=== PATIENT | female | born 2000 | race Caucasian/White ===

== ENCOUNTER 2025-01-12 13:24 | Outpatient (AMB) | payer BC, SELFPAY ==
--- NOTE | 2025-01-12 13:47 | AMB.GYNCLNOT ---
Vital Signs 01/12/25 13:48 Height 1.73 m Height Method Stated Weight 73.482 kg Weight Measurement Method Standing Scale BMI 24.6 BP 135/86 H Blood Pressure Source Automatic Cuff Blood Pressure Location Left Upper Arm Position Sitting Respiration 18 Pulse 77 Pulse Source Monitor Temp 97.2 F Temp Source Oral Pulse Oximetry (%) 98 Oxygen Delivery Method Room Air Allergies/Home Meds Allergies & Medications Allergies No Known Allergies Allergy (Verified 01/15/25 08:10) Medication Reconciliation No Known Home Medications 01/12/25 [History Confirmed 01/12/25] Intake Visit Data Collection New Patient or Established: New Patient (never been to [facility]) Reason for Visit:: HOSPITAL FOLLOW UP Seen by Clinical Staff ONLY (RN/MA): No Licensed Nuclear Control Room Operator Required: No Do You Feel Safe at Home: Yes Authorities Contacted: N/A PCP or OBGYN visit in last 3 months: Yes Hx Now: Yes Are you currently on any form of Control: No Last menstrual period: 11/28/24 Pain Present Currently: No Pain Scale Used: Genao-Ga/Numerical Pain scale:: 0 Smoking Status Smoking Status: Never smoker 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 She was induced at 40-6/7 weeks. Her daughter is 2 years old. Patient states when she got to complete she only pushed 3 times. This was in [place]. Other Relevant History: Patient has no chronic medical problems. Just -induced hypertension with last . 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 Questionnaires Covid-19 Vaccine Questionnaire Has patient been vacinated for Covid-19 Have you been vacinated for Covid-19: Yes PHQ-9 PHQ-2 Over the last 2 weeks, how often have you been bothered by any of the following problems? 1. Little interest or pleasure in doing things: not at all 2. Feeling down, depressed, or hopeless: not at all Total score: 0 PHQ-9 3. Trouble falling or staying asleep, or sleeping too much: Not at all 4. Feeling tired or having little energy: Not at all 5. Poor appetite or overeating: Not at all 6. Feeling bad about yourself - or that you are a failure or have let yourself or your family down: Not at all 7. Trouble concentrating on things, such as reading the newspaper or watching television: Not at all 8. Moving or speaking so slowly that other people could have noticed? - Or the opposite - being so fidgety or restless that you have been moving around a lot more than usual: not at all 9. Thoughts that you would be better off or of hurting yourself in some way: Not at all Total score: 0 If you checked off any problems, how difficult have these problems made it for you to do your work, take care of things at home, or get along with other people?: not difficult at all Source: Developed by Drs. Paul Renee, Meenaksih Breen, Efren Tang and colleagues, with an educational alejandrina from [employer]. 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 She is unsure about how she is. The first day of her last menstrual period was November 28. This was heavy for her. She went to the ER with a positive test at [facility] on 01/09/2025 but was already bleeding. She did bring some limited notes from the [facility] emergency room. At the time, her quantitative hCG was 1191. An ultrasound revealed no intrauterine . Her hemoglobin was 12.3 and her blood type is A-. The patient was not given RhoGAM. She was told to follow-up with me. She is here 3 days later for follow-up. The patient states she has continued to bleed. She states they diagnosed her with a UTI and she is on Keflex. The patient has a 2-year-old at home. Review of Systems Review of Systems Narrative Review of Systems: Patient has some nausea, vomiting, bloating, indigestion. She also reports abnormal bleeding and cramping. She has some breast pain. Although symptoms are consistent with an early . She is also reporting occasional hot flashes. No fevers. Exam Narrative Physical exam: Pelvic exam deferred as patient is actively be bleeding. General Limitations: no limitations General Appearance: alert, in no apparent distress, comfortable, cooperative and well groomed Neck Neck exam: Present normal inspection, full ROM and trachea midline Chest Chest inspection: Present normal inspection and symmetric chest wall rise Resp Respiratory exam: Present normal lung sounds bilaterally Card Cardiovascular exam: Present regular rate, normal rhythm and normal heart sounds Abdominal Abdominal exam: Present soft and normal bowel sounds Extremities Extremities exam: Present normal inspection and full ROM Psych Psychiatric exam: Present normal affect and normal mood Skin Skin exam: Present warm, dry, intact and normal color Results Objective Laboratory: Repeat quantitative hCG performed today at [facility] reveals a quant down to 94. Office Procedures OB Clinic LOC & Office Proc's Nursing/Assessment Patient Status: Initial/New Patient OB Clinic Nursing Assessment: Medication Reconciliation, Update PMH in EMR and Vital Signs OB Clinic Coordination of Care: Education Complex Pt/Fam, Lab and Imaging orders, Results/Orders obtained and Staff clarify orders New Patient Charge New Patient Point Assignment: 1079 New Patient Point Charge: PROCESS TREATER Level 3 ([id number]) Injection/Vaccine Admin Admin 1st Vaccine: Yes Office Meds Rhophylac 1,500 unit (300 mcg)/2 mL injection syringe Performing Provider: Leona Osman (OB Clinic)MD Performing Location: [facility] LAW OFFICE ASSISTANT Clinic Administered by: Tiki Aguilar MA on 01/12/25 15:59 Dose Route Admin Location Dispensed Lot Number Expiration Date [facility] Glaze Supervisor 1,500 unit IM RIGHT GLUTE 2 mL [id number] 12/19/26 19763-088-90 [employer] Assessment & Plan Diagnosis / Problem List (1) Rh negative status during : Status: Acute Qualifiers: Trimester: first trimester Qualified Code(s): O26.891 - Other specified related conditions, first trimester; Z67.91 - Unspecified blood type, Rh negative Assessment and Plan: Patient was given RhoGAM today. (2) Incomplete : Status: Acute Assessment and Plan: Patient is up most likely almost done miscarrying. Her quant was 76525 days ago, now it is down to 94. Patient was told to refrain from intercourse tampons swimming or douching until she stops bleeding. At least 2 weeks. The patient will follow-up then for a test. She does state her last Pap was in December 2022. I did tell her to wait 3 normal cycles before she attempting again. The patient does agree with this. (3) Family history of cancer: Status: Acute Assessment and Plan: Patient has a family history of breast cancer. This needs to be addressed at her post miscarriage visit. I am unsure which family member has breast cancer and if they were first-degree relative, if they were checked for the BRCA1 BRCA2 gene. We will discuss this further at her next follow-up appointment.
[2025-01-12 13:48] VITALS: BP 135/86; PULSE 77; RESP 18; TEMP 36.2; O2SAT 98; BMI 24.6
== END 2025-01-12 14:31 | disposition home or self-care (01) ==
LOC: HODSOBC 13:24
PROVIDERS: Supervising Provider Obstetrics & Gynecology; Visit Provider Obstetrics & Gynecology
DX: O03.4 Incomplete spontaneous abortion without complication (principal); O26.891 Other specified pregnancy related conditions, first trimester; Z67.11 Type A blood, Rh negative; Z3A.00 Weeks of gestation of pregnancy not specified; Z80.3 Family history of malignant neoplasm of breast
CPT/HCPCS: 90471; 96372; 99203; J3490; G0463; J2791

== ENCOUNTER → 2025-01-12 | Outpatient (CLI) | payer BC, SELFPAY ==
[2025-01-12 16:24] LABS: Beta HCG,Quantitative 94 mIU/mL (<5.0)
== END | disposition home or self-care (01) ==
LOC: COPL 14:41
PROVIDERS: PCP Family Medicine; Referring Provider Obstetrics & Gynecology; Visit Provider Obstetrics & Gynecology
DX: O03.4 Incomplete spontaneous abortion without complication (principal); O26.899 Other specified pregnancy related conditions, unspecified trimester; Z67.91 Unspecified blood type, Rh negative; Z3A.00 Weeks of gestation of pregnancy not specified
CPT/HCPCS: 36415; 84702

== ENCOUNTER 2025-02-05 13:55 | Outpatient (AMB) | payer BC, SELFPAY ==
--- NOTE | 2025-01-15 08:09 | GYNCLNT_ITS ---
Allergies/Home Meds Allergies & Medications Allergies No Known Allergies Allergy (Verified 01/15/25 08:10) Intake Visit Data Collection New Patient or Established: New Patient (never been to [facility]) Seen by Clinical Staff ONLY (RN/MA): No Smoking Status Smoking Status: Never smoker Questionnaires PHQ-9 PHQ-2 Over the last 2 weeks, how often have you been bothered by any of the following problems? 1. Little interest or pleasure in doing things: not at all PHQ-9 8. Moving or speaking so slowly that other people could have noticed? - Or the opposite - being so fidgety or restless that you have been moving around a lot more than usual: not at all Total score: 0 Source: Developed by Drs. Paul Renee, Meenakshi Breen, Efren Tang and colleagues, with an educational alejandrina from [employer]. Social History Living Situation History Lives With: Family Housing: House Tobacco History Smoking Status: Never smoker Second Hand Smoke Exposure: No Alcohol History Alcohol Intake: Never
[2025-02-05 14:38] VITALS: BP 129/82; PULSE 94; RESP 17; TEMP 36.9; O2SAT 98; BMI 24.4
--- NOTE | 2025-02-05 14:38 | GYNCLNT_ITS ---
Vital Signs 02/05/25 14:38 Height 1.73 m Height Method Measured Weight 73.028 kg Weight Measurement Method Standing Scale BMI 24.4 BP 129/82 Blood Pressure Source Automatic Cuff Blood Pressure Location Right Upper Arm Position Sitting Respiration 17 Pulse 94 Pulse Source Monitor Temp 98.4 F Temp Source Temporal Artery Scan Pulse Oximetry (%) 98 Oxygen Delivery Method Room Air Allergies/Home Meds Allergies & Medications Allergies No Known Allergies Allergy (Verified 02/05/25 14:39) Medication Reconciliation No Known Home Medications 01/12/25 [History Confirmed 02/05/25] Intake Visit Data Collection New Patient or Established: Established Patient (seen at [facility] within 3 years) Reason for Visit:: F\U MISCARRIAGE Consent obtained for Telemed Visit: No Seen by Clinical Staff ONLY (RN/MA): No Blender / Cook Required: No Do You Feel Safe at Home: Yes Authorities Contacted: N/A PCP or OBGYN visit in last 3 months: Yes Date of Last PCP or OBGYN visit: 01/12/25 Hx Now: No Are you currently on any form of Control: No Last menstrual period: 11/28/24 Pain Present Currently: No Pain Scale Used: Genao-Ga/Numerical Pain scale:: 0 Smoking Status Smoking Status: Never smoker 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 1. Little interest or pleasure in doing things: not at all PHQ-9 8. Moving or speaking so slowly that other people could have noticed? - Or the opposite - being so fidgety or restless that you have been moving around a lot more than usual: not at all Source: Developed by Drs. Paul Renee, Meenakshi Breen, Efren Tang and colleagues, with an educational alejandrina from [employer]. 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 She was in the ER at [facility] 01/09/2025. She was bleeding and no intrauterine at the time. Her quant was around 1100. She followed up with me in the office 01/12/2025 and her quant was down to 94. She is Rh negative and was given RhoGAM in my office. Today she reports that she has stopped bleeding she feels good she was done bleeding about 2 days after she saw me in the office. They are anxious to try again. She has a 2-year-old at home. She denies fevers chills nausea vomiting heavy bleeding. We did discuss staying on vitamins and using condoms for contraception for the next 2 months. Then she can try again. Exam General Limitations: no limitations General Appearance: alert, in no apparent distress, comfortable, cooperative and healthy appearing Office Procedures OB Clinic LOC & Office Proc's Nursing/Assessment Patient Status: Established Patient OB Clinic Nursing Assessment: Medication Reconciliation, Update PMH in EMR and Vital Signs OB Clinic Coordination of Care: Complex Care and Chronic Disease 1-5, Consent,records obtained, informed consent, Education Simp Pt/Fam and 4+ Authorizations needed Established Patient Charge Established Patient Point Assignment: 100 Established Patient Point Charge: EP Level 3 (80-115) Assessment & Plan Diagnosis / Problem List (1) Complete : Status: Acute Assessment and Plan: We will go and check a quantitative hCG. Patient is going to use condoms for the next 2 months stay on her vitamins and try again for then. (2) Rh negative status during : Status: Acute Qualifiers: Trimester: first trimester Qualified Code(s): O26.891 - Other specified related conditions, first trimester; Z67.91 - Unspecified blood type, Rh negative Assessment and Plan: Patient was given RhoGAM after this miscarriage within 3 days of vaginal bleeding.
== END 2025-02-05 15:23 | disposition home or self-care (01) ==
PROVIDERS: PCP Obstetrics & Gynecology; Referring Provider Obstetrics & Gynecology; Supervising Provider Obstetrics & Gynecology; Visit Provider Obstetrics & Gynecology
DX: O03.9 Complete or unspecified spontaneous abortion without complication (principal)
CPT/HCPCS: 99213; G0463

== ENCOUNTER → 2025-02-05 | Outpatient (CLI) | payer BC, SELFPAY ==
[2025-02-05 16:41] LABS: HCG Qualitative,Urine Negative
== END | disposition home or self-care (01) ==
LOC: COPL 15:16
PROVIDERS: PCP Physician Assistant; Referring Provider Obstetrics & Gynecology; Visit Provider Obstetrics & Gynecology
DX: O20.0 Threatened abortion (principal)
CPT/HCPCS: 81025

== ENCOUNTER 2025-03-26 10:19 | Outpatient (AMB) | payer BC, SELFPAY ==
[2025-03-26 10:35] VITALS: BP 137/85; PULSE 108; RESP 20; TEMP 36.8; O2SAT 99; BMI 24.0
--- NOTE | 2025-03-26 10:35 | AMB.OBINITIA ---
Vital Signs 03/26/25 10:35 Height 1.73 m Height Method Stated Weight 71.781 kg Weight Measurement Method Standing Scale BMI 24.0 BP 137/85 H Blood Pressure Source Automatic Cuff Blood Pressure Location Left Upper Arm Position Sitting Respiration 20 Pulse 108 H Pulse Source Monitor Temp 98.2 F Temp Source Oral Pulse Oximetry (%) 99 Oxygen Delivery Method Room Air Allergies/Home Meds Allergies & Medications Allergies No Known Allergies Allergy (Verified 03/26/25 10:36) Medication Reconciliation No Known Home Medications 01/12/25 [History Confirmed 03/26/25] Intake Visit Data Collection New Patient or Established: Established Patient (seen at [facility] within 3 years) Reason for Visit:: INITIAL CARE Seen by Clinical Staff ONLY (RN/MA): No Entry Level Automotive Technician Required: No Do You Feel Safe at Home: Yes Authorities Contacted: N/A PCP or OBGYN visit in last 3 months: Yes Hx Now: Yes Are you currently on any form of Control: No Pain Present Currently: No Pain Scale Used: Genao-Ga/Numerical Pain scale:: 0 Smoking Status Smoking Status: Never smoker Questionnaires Covid-19 Vaccine Questionnaire Has patient been vacinated for Covid-19 Have you been vacinated for Covid-19: No PHQ-9 PHQ-2 Over the last 2 weeks, how often have you been bothered by any of the following problems? 1. Little interest or pleasure in doing things: not at all 2. Feeling down, depressed, or hopeless: not at all Total score: 0 PHQ-9 3. Trouble falling or staying asleep, or sleeping too much: Not at all 4. Feeling tired or having little energy: Not at all 5. Poor appetite or overeating: Not at all 6. Feeling bad about yourself - or that you are a failure or have let yourself or your family down: Not at all 7. Trouble concentrating on things, such as reading the newspaper or watching television: Not at all 8. Moving or speaking so slowly that other people could have noticed? - Or the opposite - being so fidgety or restless that you have been moving around a lot more than usual: not at all 9. Thoughts that you would be better off or of hurting yourself in some way: Not at all Total score: 0 Source: Developed by Drs. Paul Renee, Meenakshi Breen, Efren Tang and colleagues, with an educational alejandrina from [employer]. 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 She had a recent miscarriage in and never had a period after that. She presents for a new OB. She thinks she is about 11 weeks unsure LMP. She feels tired no bleeding no cramping. 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 Induced for PIH. No complications. Delivered vaginally at [facility] in [facility] in 12/2024 no D&C Other Relevant History: Denies any chronic medical problems including asthma diabetes hypertension or major surgeries. OB Initial Visit OB Flowsheet OB Flowsheet Initial Weight: Not Recorded Date <del>?</del> EGA Weight BP Alb Glu CTX Pres Fundal ht FHR Mov Dilation Station Effacement Hx Notes Visit Note 03/26/25 <del>?</del> 10w 6d 71.781 kg 137/85 11 140 New OB. Labs ordered. Desires NIPT. Okay to know gender. Official ultrasound ordered. Menstrual History Menstrual reliability: unknown Flow: normal Menstrual regularity: irregular Monthly: No Age at menarche: 12 On control pills at conception: No Associated symptoms (LMP): Reports nausea, vomiting, fatigue and breast tenderness OB History : 3 Para: 1 Hx Total # of Abortions (Spontaneous & Elective): 1 # of Living Children: 1 Delivery History 1st : Child's name: CAILIN date: 11/26/22 sex: female Gestational age at delivery (weeks): 41 Delivery type: vaginal Delivery complications: PRECLAMPSIA History of depression before or after : No Infection History & Risk Evaluation History of STDs: none Genetic Screening & History Genetic Screening/Teratology Counseling - Includes patient, baby's father, or anyone in either family with: 1. Patient's age 35 years or older as of estimated date of delivery: No 2. Thalassemia (Czech, Belarusian, Mediterranean, or Background); MCV less than 80: No 3. Neural Tube Defect (Meningomyelocele, Spina Bifida, or Anencephaly): No 4. Congenital Heart Defect: No 5. Down Syndrome: No 6. Dante-Sachs (Ashkenazi Jehovah'S Witness, Cajun, German American): No 7. Chery Disease (Ashkenazi Jehovah'S Witness): No 8. Familial Dysautonomia (Ashkenazi Jehovah'S Witness): No 9. Sickle Cell Disease or Trait (): No 10. Hemophilia or other blood disorders: No 11. Muscular Dystrophy: No 12. Cystic Fibrosis: No 13. Olivia's Chorea: No 14. Mental Retardation/Autism: No 15. Other inherited genetic or chromosomal disorder: No 16. Maternal Metabolic Disorder (EG,TYPE 1 Diabetes, PKU): No 17. Patient or baby's father had a child with defects not listed above: No 18. Recurrent loss or a stillbirth: No 19. Medications (including supplements, vitamins, herbs or otc drugs)/illicit/recreational drugs/alcohol since last menstrual period: No 20. Any other: No Infection History 1. Live with someone with TB or exposed to TB: No 2. Rash or viral illness since last menstrual period: No 3. Hepatitis B,C: No Other (see comments) Source: [employer] Review of Systems Review of Systems Narrative Review of Systems: Patient is tired and has breast tenderness. Denies bleeding or cramping Constitutional Constitutional: Reports fatigue Gastrointestinal Gastrointestinal: Reports nausea and Reports vomiting Endocrine Endocrine: Reports fatigue Exam General Limitations: no limitations General Appearance: alert, in no apparent distress, comfortable, cooperative and well groomed Neck Neck exam: Present normal inspection, full ROM and trachea midline Chest Chest inspection: Present normal inspection and symmetric chest wall rise Resp Respiratory exam: Present normal lung sounds bilaterally Card Cardiovascular exam: Present regular rate, normal rhythm and normal heart sounds Abdominal Abdominal exam: Present soft and normal bowel sounds Extremities Extremities exam: Present normal inspection and full ROM Back Back exam: Present normal inspection and full ROM Psych Psychiatric exam: Present normal affect and normal mood Skin Skin exam: Present warm, dry, intact and normal color Office Procedures OB Clinic LOC & Office Proc's Nursing/Assessment Patient Status: Established Patient OB Clinic Nursing Assessment: Medication Reconciliation, Update PMH in EMR and Vital Signs OB Clinic Coordination of Care: Complex Care and Chronic Disease 1-5, Consent,records obtained, informed consent, Education Simp Pt/Fam, Lab and Imaging orders, Results/Orders obtained and Staff clarify orders Special Needs: Heart tones Miscellaneous Interventions: Pelvic/Pap Smear Set up Established Patient Charge Established Patient Point Assignment: 155 Established Patient Point Charge: EP Level 4 (120-155) In Clinic Procedures Pap Smear: Yes Assessment & Plan Diagnosis / Problem List (1) : Status: Acute Qualifiers: Weeks of gestation: 11 weeks Qualified Code(s): Z3A.11 - 11 weeks gestation of (2) Family history of cancer: Status: Acute (3) Rh negative status during : Status: Acute Qualifiers: Trimester: first trimester Qualified Code(s): O26.891 - Other specified related conditions, first trimester; Z67.91 - Unspecified blood type, Rh negative EXECUTIVE ADVISOR: Papsmear Pap Smear Procedure Pre-op diagnosis general: Annual wellness exam Post-op diagnosis procedure note: Same Chaparone in room during procedure?: No Procedure position: lithotomy Speculum inserted, cervix visualized: Yes Cervical appearance: normal Collection method: spatula and cytobrush Specimen placed in liquid-based cytology medium: Yes Complications: No Patient tolerated procedure well: Yes Follow up pending results: appt for results review Procedure Notes:: Pap with cotesting to HPV performed. GC chlamydia checked as patient Papsmear completed: yes
== END 2025-03-26 11:10 | disposition home or self-care (01) ==
LOC: HODSOBC 10:19
PROVIDERS: PCP Physician Assistant; Referring Provider Physician Assistant; Supervising Provider Obstetrics & Gynecology; Visit Provider Obstetrics & Gynecology
DX: O09.891 Supervision of other high risk pregnancies, first trimester (principal); Z67.91 Unspecified blood type, Rh negative; Z3A.10 10 weeks gestation of pregnancy; Z12.4 Encounter for screening for malignant neoplasm of cervix; Z11.51 Encounter for screening for human papillomavirus (HPV)
CPT/HCPCS: 99214; Q0091; G0463

== ENCOUNTER 2025-04-23 08:18 | Outpatient (AMB) | payer BC, SELFPAY ==
[2025-04-23 08:23] VITALS: BP 122/82; PULSE 95; RESP 17; TEMP 36.2; O2SAT 98; BMI 24.0
--- NOTE | 2025-04-23 08:23 | OBCLNT_ITS ---
Vital Signs 04/23/25 08:23 Height 1.73 m Height Method Stated Weight 72.121 kg Weight Measurement Method Standing Scale BMI 24.0 BP 122/82 Blood Pressure Source Automatic Cuff Blood Pressure Location Right Upper Arm Position Sitting Respiration 17 Pulse 95 Pulse Source Monitor Temp 97.2 F Temp Source Temporal Artery Scan Pulse Oximetry (%) 98 Oxygen Delivery Method Room Air Allergies/Home Meds Allergies & Medications Allergies No Known Allergies Allergy (Verified 04/23/25 08:24) Medication Reconciliation No Known Home Medications 01/12/25 [History Confirmed 04/23/25] Intake Visit Data Collection New Patient or Established: Established Patient (seen at [facility] within 3 years) Reason for Visit:: OBC Seen by Clinical Staff ONLY (RN/MA): No Podiatric Technician Required: No Do You Feel Safe at Home: Yes Authorities Contacted: N/A PCP or OBGYN visit in last 3 months: Yes Date of Last PCP or OBGYN visit: 03/26/25 Hx Now: Yes Are you currently on any form of Control: No Pain Present Currently: No Pain Scale Used: [place]-Ga/Numerical Pain scale:: 0 Smoking Status Smoking Status: Never smoker Questionnaires Covid-19 Vaccine Questionnaire Has patient been vacinated for Covid-19 Have you been vacinated for Covid-19: No PHQ-9 PHQ-2 Over the last 2 weeks, how often have you been bothered by any of the following problems? 1. Little interest or pleasure in doing things: not at all 2. Feeling down, depressed, or hopeless: not at all Total score: 0 PHQ-9 3. Trouble falling or staying asleep, or sleeping too much: Not at all 4. Feeling tired or having little energy: Not at all 5. Poor appetite or overeating: Not at all 6. Feeling bad about yourself - or that you are a failure or have let yourself or your family down: Not at all 7. Trouble concentrating on things, such as reading the newspaper or watching television: Not at all 8. Moving or speaking so slowly that other people could have noticed? - Or the opposite - being so fidgety or restless that you have been moving around a lot more than usual: not at all 9. Thoughts that you would be better off or of hurting yourself in some way: Not at all Total score: 0 If you checked off any problems, how difficult have these problems made it for you to do your work, take care of things at home, or get along with other people?: not difficult at all Source: Developed by Drs. Paul Renee, Meenakshi Breen, Efren Tang and colleagues, with an educational alejandrina from [employer]. 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 Labs ordered. Desires NIPT. Okay to know gender. Official ul trasound ordered. 04/23/25 -?-?-?-?-?-?-?-?-?-?-?-?- 14w 6d 72.121 kg 122/82 14 145 No bleeding. No cramping. Patient feels like she is carrying lower. Revi ewed normal labs and NIPT. Patient knows it is another girl. JENNIFER Calculator Estimated Delivery Date Method Current WG Current Estimate 10/16/25 Ultrasound #1 14w 6d Other Estimates 10/16/25 LMP (Uncertain) 14w 6d Expected Delivery Route/Plan 25-year-old -0-1-1 Vaginal delivery 2022 without complications at 40 weeks and 4 days. PIH with that . On baby aspirin Rh- will need RhoGAM FOB is Rh+ Specific Issue/Plans labs: O-/antibody screen negative/rubella immune/RPR nonreactive/HIV negative/hepatitis B surface antigen negative/GC negative/chlamydia negative/urine culture negative/hemoglobin 11.5/hemoglobin A1c 4.7/NIPT 46XX Office Procedures OBC Clinic LOC & Office Proc's Nursing/Assessment Patient Status: Established Patient OB Clinic Nursing Assessment: Medication Reconciliation, Update PMH in EMR and Vital Signs OB Clinic Coordination of Care: Complex Care and Chronic Disease 1-5, Education Complex Pt/Fam, Consent,records obtained, informed consent, Results/Orders obtained and Staff clarify orders Special Needs: Heart tones Established Patient Charge Established Patient Point Assignment: 125 Established Patient Point Charge: EP Level 4 (120-155) Assessment & Plan Diagnosis / Problem List (1) : Status: Acute Qualifiers: Weeks of gestation: 14 weeks Qualified Code(s): Z3A.14 - 14 weeks gestation of (2) Rh negative status during : Status: Acute Qualifiers: Trimester: first trimester Qualified Code(s): O26.891 - Other specified related conditions, first trimester; Z67.91 - Unspecified blood type, Rh negative Plan: for RhoGAM at 28 weeks and at delivery. Additional Plan Follow Up: 4 Weeks
== END 2025-04-23 09:21 | disposition home or self-care (01) ==
LOC: HODSOBC 08:18
PROVIDERS: PCP Physician Assistant; Referring Provider Physician Assistant; Supervising Provider Obstetrics & Gynecology; Visit Provider Obstetrics & Gynecology
DX: O09.892 Supervision of other high risk pregnancies, second trimester (principal); Z3A.14 14 weeks gestation of pregnancy; Z67.41 Type O blood, Rh negative
CPT/HCPCS: 99214; G0463